=== PATIENT | female | born 1980 ===

== ENCOUNTER 2021-02-08 11:31 | Inpatient (IN) | payer MEDICAID, OTHER ==
[~2021-02-08] VITALS: Ht 149.9 cm; Wt 51.3 kg
[2021-02-08 12:07] LABS: COVID AG,FIA SOURCE NASOPHARYNGEAL
[2021-02-08 12:16] LABS: BASOPHILS % (AUTO) 0.4 % (0.0-2.0); EOSINOPHILS % (AUTO) 1.5 % (1.0-6.0); HEMATOCRIT 36.2 % (36-46); LYMPHOCYTES # (AUTO) 1.8 K/uL (1.0-4.8); LYMPHOCYTES % (AUTO) 49.1 % (22.0-44.0); MEAN CORPUSCULAR HEMOGLOBIN 30.1 pg (26.0-34.0); MEAN CORPUSCULAR HGB CONC 33.2 G/dL (31.0-37.0); MEAN CORPUSCULAR VOLUME 91 fL (80-100); MONOCYTES # (AUTO) 0.3 K/uL (0.1-1.0); MONOCYTES % (AUTO) 7.2 % (2.0-9.0); NEUTROPHILS # (AUTO) 1.6 K/uL (1.8-7.7); NEUTROPHILS % (AUTO) 41.8 % (40.0-70.0); PLATELET COUNT (AUTO) 165 K/uL (150-450); RED BLOOD CELL COUNT(AUTO) 3.99 MIL/uL (4.00-5.20); RED CELL DISTRIBUTION WIDTH 13.2 % (11.5-14.5)
[2021-02-08 12:21] LABS: PROTHROMBIN TIME 11.1 SEC (9.4-11.6)
[2021-02-08 12:29] LABS: ANION GAP 10 mmol/L (8-16); CALCIUM, TOTAL 8.5 mg/dL (8.8-10.5); CARBON DIOXIDE 25 mmol/L (22-29); CHLORIDE 108 mmol/L (98-107); CREATININE 0.72 mg/dL (0.60-1.30); GLOMERULAR FILTR. RATE CALC > 60 mL/min (>60); GLUCOSE,RANDOM 118 mg/dL (70-110); POTASSIUM 3.9 mmol/L (3.5-5.1); SODIUM SERUM 143 mmol/L (136-145); UREA NITROGEN, BLOOD 9 mg/dL (7-18)
[2021-02-08 12:34] LABS: B-TYPE NATRIURETIC PEPTIDE 14 pg/mL (0-100)
[2021-02-08 12:42] LABS: ALANINE AMINOTRANSFERASE 12 U/L (12-78); ALBUMIN 3.7 g/dL (3.4-5.0); ALKALINE PHOSPHATASE 49 U/L (46-116); ASPARTATE AMINOTRANSFERASE 12 U/L (15-37); BILIRUBIN,TOTAL 0.4 mg/dL (0.1-1.0); CREATINE KINASE, TOTAL ONLY 51 U/L (26-192); HCG,QUANTITATIVE < 1 mIU/mL (0-6); TOTAL PROTEIN, SERUM 6.9 g/dL (6.4-8.2)
[2021-02-08 12:43] LABS: ACETAMINOPHEN < 2 mcg/mL (10-30)
[2021-02-08 12:44] LABS: SALICYLATE < 2.8 mg/dL (2.8-20.0)
[2021-02-08 17:51] LABS: APPEARANCE,URINE CLOUDY (CLEAR); BILIRUBIN,URINE NEGATIVE (NEGATIVE); GLUCOSE, URINE (UA) NEGATIVE (NEGATIVE); KETONES,URINE NEGATIVE (NEGATIVE); LEUKOCYTE ESTERASE ,URINE NEGATIVE (NEGATIVE); NITRATE,URINE NEGATIVE (NEGATIVE); OCCULT BLOOD,URINE LARGE (NEGATIVE); PROTEIN,URINE TRACE (NEGATIVE)
[2021-02-08 18:07] LABS: AMPHET/METH SCREEN,URINE NEGATIVE (NEGATIVE); BARBITURATE SCREEN, URINE NEGATIVE (NEGATIVE); BENZODIAZEPINES SCREEN,URINE NEGATIVE (NEGATIVE); CANNABINOID SCREEN,URINE NEGATIVE (NEGATIVE); COCAINE SCREEN,URINE NEGATIVE (NEGATIVE); METHADONE SCREEN, URINE NEGATIVE (NEGATIVE); OPIATE SCREEN,URINE NEGATIVE (NEGATIVE)
[2021-02-08 18:27] LABS: PHENCYCLIDINE SCREEN,URINE NEGATIVE (NEGATIVE)
[2021-02-08] MEDS ORDERED: QUEtiapine FUMARATE 100 MG TABLET PO PRN (18:45)
[2021-02-08] MEDS ORDERED: ZOLPIDEM TARTRATE 10 MG TABLET PO PRN (18:45)
[2021-02-08] MEDS ORDERED: LORazepam 2 MG TABLET PO PRN (18:45)
[2021-02-08 18:51] LABS: BACTERIA,URINE Few /HPF (None Seen); WBC,URINE None Seen /HPF (0-5)
[2021-02-08 18:52] LABS: AMORPHOUS SEDIMENT,UR Moderate /LPF (None Seen); SQUAMOUS EPITHELIAL CELL,UR Few /LPF (None Seen)
[2021-02-09 07:06] LABS: CHOL/HDL RATIO 4.3 (3.9-5.7); CHOLESTEROL 199 mg/dL (131-200); HDL CHOLESTEROL 46 mg/dL (40-60); LDL CHOL (CALC.) 139 mg/dL (0-130); TRIGLYCERIDES 70 mg/dL (15-150)
[2021-02-09 09:50] VITALS: BP 140/90
[2021-02-09] MEDS: SERTRALINE HCL 50 MG TABLET PO SCH (12:49)
[2021-02-09] MEDS ORDERED: INFLUENZA VIRUS VACCINE QVS 2021-22 (6MO+)/PF 60 MCG/0.5 ML SYRINGE IM. ONE (13:30)
[2021-02-09 16:13] VITALS: BP 103/62
[2021-02-09] MEDS: CEPHALEXIN MONOHYDRATE 500 MG CAPSULE PO SCH (16:31)
[2021-02-10 00:08] VITALS: BP 101/60
[2021-02-10 08:21] VITALS: BP 103/68
[2021-02-10] MEDS: SERTRALINE HCL 50 MG TABLET PO SCH (09:40)
[2021-02-10] MEDS: CEPHALEXIN MONOHYDRATE 500 MG CAPSULE PO SCH ×3 (09:40→16:39)
[2021-02-10 16:16] VITALS: BP 92/67
[2021-02-10] MEDS ORDERED: TOPIRAMATE 100 MG TABLET PO SCH (21:00)
[2021-02-11 00:39] VITALS: BP 105/62
[2021-02-11] MEDS: SERTRALINE HCL 50 MG TABLET PO SCH (08:17)
[2021-02-11] MEDS: CEPHALEXIN MONOHYDRATE 500 MG CAPSULE PO SCH ×3 (08:17→16:32)
[2021-02-11 09:08] VITALS: BP 95/62
[2021-02-11 16:17] VITALS: BP 92/62
[2021-02-11] MEDS ORDERED: TOPI100T37 PO (17:06)
[2021-02-11] MEDS ORDERED: SERT-158 PO (17:06)
[2021-02-11] MEDS ORDERED: CEPH500C3 PO (17:11)
== END 2021-02-11 18:40 | disposition home or self-care (01) | DRG 751 ==
LOC: EMS 11:33 → B2S 02-09 06:31
DX: F33.2 Major depressive disorder, recurrent severe without psychotic features (principal); I95.9 Hypotension, unspecified; D72.819 Decreased white blood cell count, unspecified; E78.5 Hyperlipidemia, unspecified; G43.909 Migraine, unspecified, not intractable, without status migrainosus; Z79.899 Other long term (current) drug therapy; Z91.51 Personal history of suicidal behavior; F41.9 Anxiety disorder, unspecified; T42.6X2A Poisoning by other antiepileptic and sedative-hypnotic drugs, intentional self-harm, initial encounter; Y92.89 Other specified places as the place of occurrence of the external cause; T42.4X2A Poisoning by benzodiazepines, intentional self-harm, initial encounter; Z20.822 Contact with and (suspected) exposure to COVID-19
CPT/HCPCS: 71045; 80053; 80061; 80201; 80346; 81001; 82550; 83880; 84484; 84702; 85025; 85610; 85730; 90686; 93005; 99285; G0480; G0481; 36415-L1; 36415-TC; G0008